=== PATIENT | female | born 1960 | race Caucasian/White ===

== ENCOUNTER 2017-06-27 15:15 | Emergency (ER) | payer BC ==
[2017-06-27 15:23] VITALS: RESP 18; TEMP 97.8; O2SAT 99
[2017-06-27] MEDS ORDERED: Bacitracin 500 Units/gm Oint Foilpak UD TOP ONE (17:42)
[2017-06-27] MEDS ORDERED: Bacitracin 500 Units/gm Oint Foilpak UD ONE (17:48)
--- NOTE | 2017-06-27 18:02 | C.PDOC ---
History Of Present Illness 57 y/o female presents to the ER complaining of pain and swelling in the right third finger which has been present for 3 days after the patient cut her cuticles. Patient states that she tried to incise it with a needle but it was too painful.Patient denies having other complaints. Time Seen by Provider: 06/27/17 17:14 Chief Complaint (Nursing): Finger,Hand,&Wrist History Per: Patient History/Exam Limitations: no limitations Onset/Duration Of Symptoms: Days Current Symptoms Are (Timing): Still Present Severity: Moderate Past Medical History Reviewed: Historical Data, Nursing Documentation, Vital Signs Vital Signs: Last Vital Signs Temp 97.8 F 06/27/17 15:20 Pulse 53 L 06/27/17 18:07 Resp 18 06/27/17 18:07 BP 124/85 06/27/17 18:07 Pulse Ox 99 06/27/17 19:06 - Medical History PMH: No Chronic Diseases Surgical History: No Surg Hx Family History: States: No Known Family Hx - Social History Hx Alcohol Use: No Hx Substance Use: No - Immunization History Hx Tetanus Toxoid Vaccination: No Hx Influenza Vaccination: No Hx Pneumococcal Vaccination: No Review Of Systems Musculoskeletal: Positive for: Hand Pain (right third finger pain) Neurological: Negative for: Weakness, Numbness Physical Exam - Physical Exam Appears: Non-toxic, No Acute Distress Skin: Normal Color, Warm Head: Atraumatic, Normacephalic Eye(s): bilateral: Normal Inspection, EOMI Nose: Normal Oral Mucosa: Moist Neck: Normal ROM, Supple Chest: Symmetrical Respiratory: No Accessory Muscle Use Extremity: Normal ROM, Tenderness ((+) tenderness and swelling to the lateral aspect of the cuticle of right third finger), Capillary Refill (< 2 sec), Swelling (lateral aspect of the cuticle of right third finger) Extremity: Bilateral: Normal ROM Pulses: Left Radial: Normal, Right Radial: Normal Neurological/Psych: Oriented x3, Normal Speech, Normal Motor, Normal Sensation ED Course And Treatment O2 Sat by Pulse Oximetry: 99 (RA) Pulse Ox Interpretation: Normal Progress Note: An I&D was performed with a drainage. Patient refused a tetanus shot. Discussed wound care and wound check in two days. - Incision & Drainage Of Abscess Prep Used: Sterile Water, Betadine Procedure: Incised W/Scalpel Blade#: (11), Drained Pus (copious), Irrigated Cavity W/Saline, Probed To Break Up Loculations Procedure: Wound Repair - Patient tolerated procedure Patient Tolerated Procedure:: Well Disposition - Disposition Disposition: HOME/ ROUTINE Disposition Time: 18:00 Condition: STABLE Additional Instructions: Wound check in 2 days with your primary medical doctor without fail for further evaluation. Take medications as prescribed. Return to the emergency department at any time if symptoms persist or worsen. 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 - Scribe Statement The provider has reviewed the documentation as recorded by the Marshall Uribe Provider Attestation All medical record entries made by the Scribe were at my direction and personally dictated by me. I have reviewed the chart and agree that the record accurately reflects my personal performance of the history, physical exam, medical decision making, and the department course for this patient. I have also personally directed, reviewed, and agree with the discharge instructions and disposition.
[2017-06-27 18:08] VITALS: BP 124/85; PULSE 53
== END 2017-06-27 18:08 | disposition home or self-care (01) ==
LOC: C.ER 15:15
DX: L03.011 Cellulitis of right finger (principal)

== ENCOUNTER 2017-06-29 14:25 | Emergency (ER) | payer BC ==
[2017-06-29 15:53] VITALS: BMI 28.3
[2017-06-29 15:58] VITALS: BP 119/80; PULSE 61; TEMP 98.9; O2SAT 97
--- NOTE | 2017-06-29 16:48 | C.PDOC ---
History Of Present Illness 57 y/o female presents to the ER for wound check in the right middle finger. Patient states that she had a paronychia that was drained 2 days ago. Patient reports that the finger is improving as there is decreased pain and swelling. Of note, patient states that she is not taking antibiotics. Time Seen by Provider: 06/29/17 16:14 Chief Complaint (Nursing): Wound Check History Per: Patient History/Exam Limitations: no limitations Severity: Moderate Past Medical History Reviewed: Historical Data, Nursing Documentation, Vital Signs Vital Signs: Last Vital Signs Temp 98.9 F 06/29/17 15:53 Pulse 61 06/29/17 15:53 Resp 18 06/29/17 17:07 BP 119/80 06/29/17 15:53 Pulse Ox 97 06/29/17 19:31 - Medical History PMH: No Chronic Diseases Surgical History: No Surg Hx Family History: States: No Known Family Hx - Social History Hx Alcohol Use: No Hx Substance Use: No - Immunization History Hx Tetanus Toxoid Vaccination: No Hx Influenza Vaccination: No Hx Pneumococcal Vaccination: No Review Of Systems Except As Marked, All Systems Reviewed And Found Negative. Musculoskeletal: Positive for: Hand Pain (right middle finger pain) Physical Exam - Physical Exam Appears: Non-toxic, No Acute Distress Skin: Normal Color, Warm Head: Atraumatic, Normacephalic Eye(s): bilateral: Normal Inspection, PERRL Nose: Normal Oral Mucosa: Moist Neck: Supple Chest: Symmetrical Cardiovascular: Rhythm Regular Respiratory: Normal Breath Sounds, No Accessory Muscle Use, No Rales, No Rhonchi , No Wheezing Extremity: Normal ROM, Capillary Refill (< 2 seconds), Swelling (mild swelling in lateral aspect of right 3rd digit), Other (erythema in lateral aspect of right 3rd digit, no indurance, no fluctuance) Pulses: Right Radial: Normal Neurological/Psych: Oriented x3, Normal Speech, Normal Cognition, Normal Motor, Normal Sensation ED Course And Treatment O2 Sat by Pulse Oximetry: 97 (RA) Pulse Ox Interpretation: Normal Progress Note: Patient states that the pain is improving. Patient has been told to follow up with PCP in 1-2 days. Disposition Counseled Patient/Family Regarding: Diagnosis, Need For Followup - Disposition Referrals: Dell Wasserman [Staff Provider] - Disposition: HOME/ ROUTINE Disposition Time: 16:50 Condition: STABLE Additional Instructions: FOLLOW UP WITH YOUR DOCTOR IN 1-2 DAYS RETURN TO ER IF SYMPTOMS WORSEN Instructions: Acute Wound Care (ED) Forms: [facility] (Swedish), Work Excuse Print Language: SERBIAN - Clinical Impression Clinical Impression: Visit for wound check, Paronychia - Scribe Statement The provider has reviewed the documentation as recorded by the Marshall Uribe Provider Attestation: All medical record entries made by the Marshall were at my direction and personally dictated by me. I have reviewed the chart and agree that the record accurately reflects my personal performance of the history, physical exam, medical decision making, and the department course for this patient. I have also personally directed, reviewed, and agree with the discharge instructions and disposition.
[2017-06-29 17:08] VITALS: RESP 18
== END 2017-06-29 17:13 | disposition home or self-care (01) ==
LOC: C.ER 14:25
DX: Z51.89 Encounter for other specified aftercare (principal); L03.011 Cellulitis of right finger